=== PATIENT | male | born 1955 | race Asian ===

== ENCOUNTER 2024-08-09 06:10 | Day surgery (SDC) | payer OTHER, SELFPAY ==
[2024-08-09] VITALS (8 sets, daily range): BP systolic 116–155; BP diastolic 79–102; BMI 28.9
[2024-08-09] MEDS: NORMOSOL-R/PLASMALYTE-A 1000 IV (11:00)
== END 2024-08-09 13:45 | disposition home or self-care (01) ==
LOC: SDS 06:10
PROVIDERS: ATTENDING PHYSICIAN Specialist
PROC: 0T768DZ Dilation of Right Ureter with Intraluminal Device, Via Natural or Artificial Opening Endoscopic (ICD-10-PCS; 2024-08-09)
PROC: 0TF68ZZ Fragmentation in Right Ureter, Via Natural or Artificial Opening Endoscopic (ICD-10-PCS; 2024-08-09)
DX: N20.1 Calculus of ureter (principal)
CPT/HCPCS: 52356; 74018; 76000; C1894; C2617